=== PATIENT | female | born 1965 | race Caucasian/White ===

== ENCOUNTER 2021-09-30 13:55 | Observation (INO) | payer OTHER, MEDICAID, SELFPAY ==
[2021-09-30] VITALS (36 sets, daily range): BP systolic 128–173; BP diastolic 60–88; PULSE 67–83; RESP 18; TEMP 36.7–37.1; O2SAT 92–97; BMI 41.5
[2021-09-30] MEDS: NICARDIPINE 25 MG in SODIUM CHLORIDE 0.9% 240 ML 50 ML IV (14:55)
[2021-09-30] MEDS: ACETAMINOPHEN 325 MG TABLET 650 MG PO (15:06)
--- NOTE | 2021-09-30 17:04 | DI.ECHO.S_ITS ---
[facility]---------+ [facility] +---------+ : : [address] : : : : [id number] : : : : Phone: [phone] Echocardiogram Report + + :Name: MARIE MESSINA Study Date: 10/01/2021 Height: 62 in : :[facility] ReadingLocation: Weight: 227 lb : : Gender: Female BSA: 2.0 m2 : :: 1965 Age: 56 yrs BP: 131/72 mmHg: :Reason For Study: MALIGNANT HYPERTENSION : :Ordering Physician: CHARAN, : :GOGO Performed By: Mishel Gates : :Referring: GOGO FARRAR : + + Interpretation Summary There is mild-moderate concentric left ventricular hypertrophy. The ejection fraction is estimated to be 60-65%. Diastolic parameters suggest probable normal left ventricular diastolic function and normal filling pressures. The right ventricle is normal in size and function. No significant valvular abnormalities. Unable to estimate PASP. Compared to the prior study dated 10/09/2014, LV wall thickness has increased but otherwise no change. Procedure: A two-dimensional transthoracic echocardiogram with color flow and Doppler was performed. The study quality was technically adequate. Comparison is made with the echocardiogram of 10/09/2014. The patient was in sinus rhythm with heart rates between 62-86 bpm during the exam. Left Ventricle: The left ventricle is normal in size. There is mild-moderate concentric left ventricular hypertrophy. The ejection fraction is estimated to be 60-65%. Diastolic parameters suggest probable normal left ventricular diastolic function and normal filling pressures. Right Ventricle: The right ventricle is normal in size and function. Atria: The left atrial size is normal. Right atrial size is normal. There is no Doppler evidence for an interatrial shunt. Mitral Valve: The mitral valve is normal in structure and function. There is trace mitral regurgitation. Aortic Valve: The aortic valve is trileaflet. The aortic valve is slightly calcified. There is no aortic valve stenosis. No aortic regurgitation is present. Tricuspid Valve: The tricuspid valve is normal in structure and function. There is trace tricuspid regurgitation. Pulmonary artery pressures cannot be estimated because of the lack of a measurable TR jet velocity. Pulmonic Valve: The pulmonic valve is not well visualized. There is trace pulmonic regurgitation. Great Vessels: The aortic root is normal size. The dimensions of the ascending aorta are normal. The IVC is of normal diameter and collapses greater than 50% with a sniff. This suggests a low right atrial pressure of 3 mm Hg. Pericardium/ Pleura There is no pericardial effusion. There is no pleural effusion. MMode/2D Measurements & Calculations LVIDd: 4.3 cm LVOT diam: 1.9 cm LVIDs: 3.1 cm Ao root diam: 2.8 cm FS: 27.0 % asc Aorta Diam: 3.1 cm IVSd: 1.2 cm Ao Arch Diam (Prox Trans): 2.8 cm LVPWd: 1.0 cm LV chávez. diameter/BSA (cm/m^2): 2.1 LV sys. diameter/BSA (cm/m^2): 1.5 LA A2 area: 16.3 cm2 RA long axis: 4.3 cm LA A4 area: 15.8 cm2 RA area: 13.3 cm2 LA length (vol): 4.8 cm RA vol: 35.3 ml LA vol: 46.1 ml RA : 17.5 ml/m2 LA vol index: 22.9 ml/m2 IVC diam: 1.7 cm RVD1 (basal): 3.4 cm RVD2 (mid): 2.8 cm TAPSE: 2.6 cm Doppler Measurements & Calculations Ao V2 max: 168.2 cm/sec LVOT Max Pravin: 101.7 cm/sec Ao V2 mean: 121.4 cm/sec LV V1 max P.1 mmHg Ao max P.3 mmHg LV V1 VTI: 24.2 cm Ao mean P.4 mmHg JOSÉ MIGUEL(I,D): 1.8 cm2 Ao V2 VTI: 38.4 cm JOSÉ MIGUEL(V,D): 1.7 cm2 sev ratio: 0.63 JOSÉ MIGUEL indexed to BSA (cm^2/m^2): 0.87 MV E max pravin: 103.0 cm/sec PA V2 max: 97.7 cm/sec MV A max pravin: 72.1 cm/sec PA V2 mean: 69.1 cm/sec MV E/A: 1.4 PA mean P.1 mmHg Med Peak E' Pravin: 7.9 cm/sec PA pr(Accel): 39.6 mmHg E/E' med: 13.1 Lat Peak E' Pravin: 9.8 cm/sec E/E' lat: 10.5 E/e' average: 11.8 MV dec time: 0.29 sec [facility] 67.4 ml Reading Physician:01:03 PM
--- NOTE | 2021-09-30 17:05 | P.HP_ITS ---
History of Present Illness History of Present Illness Date Patient Seen: 09/30/21 Time Patient Seen: 17:12 Chief complaint: hypertensive crisis Narrative: Patient is a 56-year-old female with a history of hypertension, anxiety, depression, type 2 diabetes, hyperlipidemia, obstructive sleep apnea, migraine headache who went to physical therapy today for chronic left shoulder problem. When she was at the facility the patient was found to be markedly hypertensive with blood pressure of 230 systolic over 110. She was sent to the [facility] emergency room for evaluation. She also complained of headache. Difficulty sleeping last night. The pain was described as 8/10 all over. She had some associated dizziness nausea but no vomiting. She denied any vision changes. She has had no chest pain shortness of breath or palpitations. Patient had a head CT at [facility] which by report is negative. Her EKG showed sinus bradycardia, a chest x-ray was obtained which was negative. Laboratory study revealed sodium 139 potassium 4.0 chloride 105 CO2 of 29, glucose 97, BUN of 13, creatinine 0.87, total bili 1.2, calcium 9.2, alk-phos 84, ALT of 29, AST of 17, her white count was 8.2, hemoglobin 14.3, hematocrit 42.3, platelet count 221. The patient received IV hydralazine without significant improvement. She was transferred to [facility] for inpatient treatment of malignant hypertension. Patient was placed on a Cardene drip at [facility]. Upon arrival here her blood pressure had significantly improved and is now 133/64. Patient History Medical History (Updated 09/30/21 @ 17:17 by Machelle Merritt MD) Anxiety Depression History of hyperparathyroidism Hyperlipidemia Hypertension Hypothyroidism Migraine headache Obstructive sleep apnea Type 2 diabetes mellitus Surgical History (Updated 09/30/21 @ 17:19 by Machelle Merritt MD) H/O tubal ligation History of ankle surgery History of cholecystectomy History of hip surgery History of repair of hiatal hernia Hx of tonsillectomy Family & Social History Family History (Updated 09/30/21 @ 17:25 by Machelle Merritt MD) Mother Hypertension Myocardial infarction Social History: household members spouse Prior Living Arrangements House Safety & Behavioral: Feels Safe in Current Yes Environment Been Physically Hurt or No Threatened By a Person Suicidal Ideation Description None Suicide Plan Description No Plan Tobacco & Substance use: Smoking Status Former smoker alcohol intake current alcohol intake frequency 0-2 drinks per day Substance Use Type marijuana Meds Home Medications and Allergies Home Medications Medication Instructions Recorded Confirmed Type alprazolam 0.5 mg tablet 0.5 mg PO BID PRN 09/30/21 09/30/21 History duloxetine 60 mg capsule,delayed 1 mg PO DAILY 09/30/21 09/30/21 History release insulin glargine 100 unit/mL 30 unit SUBCUT BEDTIME 09/30/21 09/30/21 History subcutaneous solution (Lantus U-100 Insulin) irbesartan 150 mg tablet 150 mg PO BEDTIME 09/30/21 09/30/21 History levothyroxine 175 mcg tablet 175 mcg PO QAM 09/30/21 09/30/21 History liraglutide 0.6 mg/0.1 mL (18 mg/3 1.8 mg SUBCUT DAILY 09/30/21 09/30/21 History mL) subcutaneous pen injector (Victoza 3-Eddie) metoprolol succinate 50 mg 50 mg PO DAILY 09/30/21 09/30/21 History tablet,extended release 24 hr rosuvastatin 40 mg tablet 40 mg PO DAILY 09/30/21 09/30/21 History Review of Systems Review of Systems Narrative: 10 point review of system negative except as above Exam Vital Signs (past 8 hours): - 09/30/21 14:51 Temperature 98.8 F Pulse Rate 70 Respiratory Rate 18 Blood Pressure 162/79 H Pulse Oximetry 94 Narrative Exam Narrative: Pleasant female resting comfortably in no obvious distress [facility] Other: HEENT, normocephalic atraumatic, extraocular muscles are intact, oropharynx is clear Neck Other: Neck is supple without adenopathy or thyromegaly Resp Other: Lungs clear to auscultation Cardio Other: Cardiac exam: Regular rate and rhythm normal S1-S2 with a 2/6 systolic ejection murmur GI Other: Abdomen: Soft nontender nondistended Skin Other: Face Neuro Other: Neuro exam is nonfocal Extrem Other: No edema Objective Labs Labs: As above Assessment & Plan Assessment & Plan narrative: 56-year-old female with a history of hypertension, type 2 diabetes, hyperlipidemia, obstructive sleep apnea, hypothyroidism presents to the hospital with malignant hypertension * By report patient is markedly hypertensive with blood pressures to 30s over 110 * Blood pressure improved with Cardene drip * Will taper the Cardene drip off, resume metoprolol and hyper started * Will obtain a cardiac echo to evaluate LV function * Will defer renal duplex as we are unable to obtain that here to look up for renal artery stenosis, consider further outpatient workup for secondary causes of hypertension Type 2 diabetes * Will continue Lantus and Victoza * Will check Chemsticks at a.c. and HS * Will check glycohemoglobin * As sliding scale Hypothyroidism * Continue L-thyroxine Hyperlipidemia * Continue statin Depression and anxiety * Will continue alprazolam and duloxetine * Patient reports her is her surrogate decision maker, she is a full code will note that her record accordingly. Utilized all available methods to review update and confirm the patient's current medication Patient will be admitted admitted under observation, spatial be discharged home tomorrow assuming blood pressure control has improved Time Spent With Patient Critical Care time: I spent a total of [] minutes of critical care time on this patient's care today; this time is exclusive of procedural time.
[2021-09-30] MEDS: METOPROLOL ER 50 MG TABLET PO (17:14)
--- NOTE | 2021-09-30 18:18 | PM.CN.EICU ---
History of Present Illness Consult details Chief complaint: hypertensive crisis :: This patient was seen in the Intensive Care Unit via real time interactive two-way audiovisual telecommunication. HPI: THis is A 56-year-old Woman with PMH of T2DM, HL, GISELLE, migraines, anxiety, depression, and HTN who was found to have SBP of 230s when she presented for physical therapy for her chronic L shoulder problem. Pt. sent to [facility] ER. Per report head CT was negative and EKG showed sinus fay. CHEM7, LFTs, and CBC were unremarkable. She was given IV hydralazine without significant improvement and therefore she was started on Nicardipine drip and transferred to [facility]. On arrival to [facility] BP was 160-170s/70-80a but now it has improved to 130s-60s on Nicardipine drip 1.25 mg/hr and pt. just got Metoprolol 50mg ER. . ROS: + headaches with some associated dizziness and nausea but no vomitting at outside hospital ER. No visual changes. According to nurse pt. reports improvement in headache. [facility] Medical History (Updated 09/30/21 @ 17:17 by Machelle Merritt MD) Anxiety Depression History of hyperparathyroidism Hyperlipidemia Hypertension Hypothyroidism Migraine headache Obstructive sleep apnea Type 2 diabetes mellitus Surgical History (Updated 09/30/21 @ 17:19 by Machelle Merritt MD) H/O tubal ligation History of ankle surgery History of cholecystectomy History of hip surgery History of repair of hiatal hernia Hx of tonsillectomy Family History (Updated 09/30/21 @ 17:25 by Machelle Merritt MD) Mother Hypertension Myocardial infarction Social History household members: spouse Smoking Status: Former smoker alcohol intake: current Current Medications Current Medications Medications: Home Medications alprazolam 0.5 mg tablet 0.5 mg PO BID PRN 09/30/21 [History Confirmed 09/30/21] duloxetine 60 mg capsule,delayed release 1 mg PO DAILY 09/30/21 [History Confirmed 09/30/21] insulin glargine 100 unit/mL subcutaneous solution (Lantus U-100 Insulin) 30 unit SUBCUT BEDTIME 09/30/21 [History Confirmed 09/30/21] irbesartan 150 mg tablet 150 mg PO BEDTIME 09/30/21 [History Confirmed 09/30/21] levothyroxine 175 mcg tablet 175 mcg PO QAM 09/30/21 [History Confirmed 09/30/21] liraglutide 0.6 mg/0.1 mL (18 mg/3 mL) subcutaneous pen injector (Victoza 3-Eddie) 1.8 mg SUBCUT DAILY 09/30/21 [History Confirmed 09/30/21] metoprolol succinate 50 mg tablet,extended release 24 hr 50 mg PO DAILY 09/30/21 [History Confirmed 09/30/21] rosuvastatin 40 mg tablet 40 mg PO DAILY 09/30/21 [History Confirmed 09/30/21] Visit Medications (administered) Generic Name Dose Route Start Last Admin Trade Name Freq PRN Reason Stop Dose Admin Acetaminophen 650 mg 09/30/21 14:59 09/30/21 15:06 Acetaminophen 325 Mg Tablet PO 650 mg Q6HR PRN Administration Fever/Mild Pain (1-3) Nicardipine HCl 25 mg/ Sodium 250 mls @ 50 mls/hr 09/30/21 15:45 09/30/21 17:23 Chloride IV 2.5 mg/hr TITRATE ALLYSSA 25 mls/hr Titration Protocol 5 MG/HR Exam Vital Signs (past 8 hours): - 09/30/21 14:45 09/30/21 14:46 09/30/21 14:51 Temperature 98.8 F Pulse Rate 70 71 70 Respiratory Rate 18 Blood Pressure 162/79 H 162/79 H Pulse Oximetry 94 93 94 09/30/21 15:00 09/30/21 15:01 09/30/21 15:15 Temperature Pulse Rate 76 75 71 Respiratory Rate Blood Pressure 173/88 H 166/77 H Pulse Oximetry 94 96 94 09/30/21 15:28 09/30/21 15:58 09/30/21 16:24 Temperature Pulse Rate 71 Respiratory Rate Blood Pressure 138/67 128/61 Pulse Oximetry 93 09/30/21 16:30 09/30/21 16:37 09/30/21 16:45 Temperature Pulse Rate 71 Respiratory Rate Blood Pressure 135/64 133/60 Pulse Oximetry 96 09/30/21 16:50 09/30/21 17:00 09/30/21 17:12 Temperature 98.1 F Pulse Rate 70 71 70 Respiratory Rate 18 Blood Pressure 131/62 135/64 Pulse Oximetry 94 92 96 09/30/21 17:14 09/30/21 17:15 09/30/21 17:16 Temperature Pulse Rate 75 69 83 Respiratory Rate Blood Pressure 130/60 130/60 Pulse Oximetry 93 93 09/30/21 17:30 09/30/21 17:45 09/30/21 18:00 Temperature 98.5 F Pulse Rate Respiratory Rate Blood Pressure 135/64 138/68 140/69 Pulse Oximetry Assessment & Plan Assessment & Plan narrative: Assessment 56 yo Hypertensive urgency requiring nicardipine drip DM GISELLE Anxiety Hypothyroidism Plan -wean nicardipine drip to off as long as BP < 160/100 -Metoprolol ER 50 mg QD -hold off on patient's Irbesartan for now as we do not want too drastic reduction of patient's BP, if patient unable to wean off of nicardipine drip despite Metoprolol 50 mg QD, then would titrate back irbesartan -check Troponin and TSH if not done today at outside ER -plan for outpatient u/s to evaluate for renal artery stenosis (as they do not have this capability inpatient at [facility]) -check TSH -monitor patient's BG AC and QHS and resume patient's home insulin regimen -if patient is on CPAP at home for GISELLE then resume CPAP when patient sleeps, otherwise plan to set up for outpatient CPAP -resume patient's xanxas and duloxetine for anxiety CCT spent 40 min Time Spent With Patient Critical Care time: I spent a total of [] minutes of critical care time on this patient's care today; this time is exclusive of procedural time.
--- NOTE | 2021-09-30 19:07 | PC.ADMIT ---
[address] [facility] Admission Note: The patient,Savanna Santizo,56 y/o, was given written information regarding hospital policies, unit procedures and contact persons. Patient's smoking status: Former smoker. Vital Signs - 8 hr 09/30/21 14:45 09/30/21 14:46 09/30/21 14:51 Temperature 98.8 F Pulse Rate 70 71 70 Respiratory Rate 18 Blood Pressure 162/79 H 162/79 H Pulse Oximetry 94 93 94 09/30/21 15:00 09/30/21 15:01 09/30/21 15:15 Temperature Pulse Rate 76 75 71 Respiratory Rate Blood Pressure 173/88 H 166/77 H Pulse Oximetry 94 96 94 09/30/21 15:28 09/30/21 15:58 09/30/21 16:24 Temperature Pulse Rate 71 Respiratory Rate Blood Pressure 138/67 128/61 Pulse Oximetry 93 09/30/21 16:30 09/30/21 16:37 09/30/21 16:45 Temperature Pulse Rate 71 Respiratory Rate Blood Pressure 135/64 133/60 Pulse Oximetry 96 09/30/21 16:50 09/30/21 17:00 09/30/21 17:12 Temperature 98.1 F Pulse Rate 70 71 70 Respiratory Rate 18 Blood Pressure 131/62 135/64 Pulse Oximetry 94 92 96 09/30/21 17:14 09/30/21 17:15 09/30/21 17:16 Temperature Pulse Rate 75 69 83 Respiratory Rate Blood Pressure 130/60 130/60 Pulse Oximetry 93 93 09/30/21 17:30 09/30/21 17:44 09/30/21 17:45 Temperature Pulse Rate Respiratory Rate Blood Pressure 135/64 147/72 H 138/68 Pulse Oximetry 09/30/21 18:00 Temperature 98.5 F Pulse Rate Respiratory Rate Blood Pressure 140/69 Pulse Oximetry Patient transferred from [facility] to [facility] at approximately 1445. Patient on 5 of nicardipine on arrival with BP and HR WNL. Per Dr. Merritt's order, patient given 50mg PO metoprolol and drip was titrated off. Patient's BP remains <150 systolic, HR in 70s. Echo ordered for tomorrow then likely to D/C barring any complications. Patient is A/ox4, ambulatory, and in good spirits.
[2021-09-30 19:36] LABS: Hemoglobin A1C% w Est Avg Glu 5.4 % (4.0-6.0)
[2021-09-30 19:43] LABS: Creatine Kinase 52 U/L (30-135)
--- NOTE | 2021-09-30 19:49 | P.ICUMDRN_ITS ---
- :: This patient was seen in the Intensive Care Unit via real time interactive two- way audiovisual telecommunication. Note: Completed multidisciplinary round. Currently off cardene infusion with SBP ~130s Advised RN to keep patient off of cardene infusion unless SBP > 180.
[2021-09-30 19:55] LABS: Troponin I < 0.012 ng/mL (0.01-0.034)
[2021-09-30] MEDS: INSULIN GLARGINE 100 UNIT/ML 3ML PEN 30 UNIT SUBCUT (20:41)
[2021-09-30] MEDS: ATORVASTATIN 20 MG TABLET 40 MG PO (20:41)
[2021-09-30] MEDS: ALPRAZolam 0.5 MG TABLET PO (20:49)
[2021-10-01] VITALS (22 sets, daily range): BP systolic 131–176; BP diastolic 63–98; PULSE 61–73; RESP 16–20; TEMP 36.5–36.9; O2SAT 95
[2021-10-01] MEDS: ACETAMINOPHEN 325 MG TABLET 650 MG PO ×2 (00:09→08:24)
[2021-10-01] MEDS: KETOROLAC 30 MG/ML VIAL 15 MG IV ×2 (01:16→09:54)
[2021-10-01] MEDS: LEVOTHYROXINE 150 MCG TABLET 175 MCG PO (05:31)
[2021-10-01 05:51] LABS: Add Manual Diff / Slide Review NO; Basophils Absolute Auto 100 /uL (0-100); Basophils Percent Auto 0.6 % (0-2); Eosinophils Absolute Auto 200 /uL (0-450); Eosinophils Percent Auto 2.2 % (2-4); Hematocrit 43.7 % (36-46); Lymphocytes Absolute Auto 2900 /uL (1100-4500); Lymphocytes Percent Auto 31.9 % (25-40); Mean Corpuscular HGB Conc 34.3 % (30-36); Mean Corpuscular Volume 87.3 fL (80-100); Monocytes Absolute Auto 500 /uL (0-900); Monocytes Percent Auto 5.8 % (3-14); Neutrophils Absolute Auto 5300 /uL (1500-7000); Neutrophils Percent Auto 59.5 % (50-75); Platelet Count 202 X10^3/uL (150-400); Red Blood Cell Count 5.01 X10^6/uL (4.0-5.2); Red Cell Distribution Width 12.9 % (11.6-14.8)
[2021-10-01 05:58] LABS: BUN Creatinine Ratio 19.3 (6-22); Blood Urea Nitrogen 16 mg/dL (7-17); Calcium 9.7 mg/dL (8.4-10.2); Carbon Dioxide 29 mmol/L (22-32); Chloride 101 mmol/L (98-107); Estimated Glomerular Filt Rate > 60.0 mL/min (>60); Glucose 118 mg/dL (70-100); HEMOLYSIS 69 (0-50); Sodium 137 mmol/L (137-145)
[2021-10-01 05:59] LABS: Potassium 4.2 mmol/L (3.4-5.1)
--- NOTE | 2021-10-01 07:13 | P.TELICUPN_ITS ---
Subjective Subjective :: This patient was seen in the Intensive Care Unit via real time interactive two- way audiovisual telecommunication. 56 yo W with GISELLE, hypothyroidism, anxiety, T2DM, and HTN admitted for hyp ertensive urgency requiring Nicardipine drip initially but it has been weaned off. Overnight BP ranged 140-170s/70-90s but this morning BP is 139/64. HR is 60-70s. Current Medications Current Medications Medications: Home Medications alprazolam 0.5 mg tablet 0.5 mg PO BID PRN 09/30/21 [History Confirmed 09/30/21] duloxetine 60 mg capsule,delayed release 1 mg PO DAILY 09/30/21 [History Confirmed 09/30/21] insulin glargine 100 unit/mL subcutaneous solution (Lantus U-100 Insulin) 30 unit SUBCUT BEDTIME 09/30/21 [History Confirmed 09/30/21] irbesartan 150 mg tablet 150 mg PO BEDTIME 09/30/21 [History Confirmed 09/30/21] levothyroxine 175 mcg tablet 175 mcg PO QAM 09/30/21 [History Confirmed 09/30/21] liraglutide 0.6 mg/0.1 mL (18 mg/3 mL) subcutaneous pen injector (Victoza 3-Eddie) 1.8 mg SUBCUT DAILY 09/30/21 [History Confirmed 09/30/21] metoprolol succinate 50 mg tablet,extended release 24 hr 50 mg PO DAILY 09/30/21 [History Confirmed 09/30/21] rosuvastatin 40 mg tablet 40 mg PO DAILY 09/30/21 [History Confirmed 09/30/21] Visit Medications (administered) Generic Name Dose Route Start Last Admin Trade Name Freq PRN Reason Stop Dose Admin Acetaminophen 650 mg 09/30/21 14:59 10/01/21 00:09 Acetaminophen 325 Mg Tablet PO 650 mg Q6HR PRN Administration Fever/Mild Pain (1-3) Alprazolam 0.5 mg 09/30/21 16:56 09/30/21 20:49 Alprazolam 0.5 Mg Tablet PO 0.5 mg BID PRN Administration Anxiety Atorvastatin Calcium 40 mg 09/30/21 21:00 09/30/21 20:41 Atorvastatin 20 Mg Tablet PO 40 mg BEDTIME ALLYSSA Administration Nicardipine HCl 25 mg/ Sodium 250 mls @ 50 mls/hr 09/30/21 15:45 09/30/21 18:52 Chloride IV 0 mg/hr TITRATE ALLYSSA 0 mls/hr Titration Protocol 5 MG/HR Insulin Glargine 30 unit 09/30/21 21:00 09/30/21 20:41 Insulin Glargine 100 Unit/Ml 3ml Pen SUBCUT 30 unit BEDTIME ALLYSSA Administration Ketorolac Tromethamine 15 mg 09/30/21 18:30 10/01/21 01:16 Ketorolac 30 Mg/Ml Vial IV 10/03/21 16:59 15 mg Q6H PRN Administration pain Levothyroxine Sodium 175 mcg 10/01/21 06:00 10/01/21 05:31 Levothyroxine 150 Mcg Tablet PO 175 mcg DAILY@0600 ALLYSSA Administration Objective Labs Result Diagrams: 10/01/21 05:35 10/01/21 05:35 Labs: Laboratory Results - last 24 hr 09/30/21 09/30/21 09/30/21 15:30 19:14 19:14 WBC RBC Hgb Hct MCV MCH MCHC RDW Plt Count Neut % (Auto) Lymph % (Auto) Gilliam % (Auto) Eos % (Auto) Baso % (Auto) Neut # (Auto) Lymph # (Auto) Gilliam # (Auto) Eos # (Auto) Baso # (Auto) Sodium Potassium Chloride Carbon Dioxide BUN Creatinine Estimated GFR BUN/Creatinine Ratio Glucose Hemoglobin A1c 5.4 Calcium Total Creatine Kinase 52 CK-MB (CK-2) TNP CK-MB (CK-2) Rel Index TNP Troponin I < 0.012 TSH Nasal Screen MRSA (PCR) Negative for mrsa 09/30/21 10/01/21 10/01/21 19:14 05:35 05:35 WBC 9.0 RBC 5.01 Hgb 15.0 Hct 43.7 MCV 87.3 MCH 30.0 MCHC 34.3 RDW 12.9 Plt Count 202 Neut % (Auto) 59.5 Lymph % (Auto) 31.9 Gilliam % (Auto) 5.8 Eos % (Auto) 2.2 Baso % (Auto) 0.6 Neut # (Auto) 5300 Lymph # (Auto) 2900 Gilliam # (Auto) 500 Eos # (Auto) 200 Baso # (Auto) 100 Sodium 137 Potassium 4.2 Chloride 101 Carbon Dioxide 29 BUN 16 Creatinine 0.83 Estimated GFR > 60.0 BUN/Creatinine Ratio 19.3 Glucose 118 H Hemoglobin A1c Calcium 9.7 Total Creatine Kinase CK-MB (CK-2) CK-MB (CK-2) Rel Index Troponin I TSH 0.80 Nasal Screen MRSA (PCR) Exam Vital Signs (past 8 hours): - 10/01/21 00:13 10/01/21 01:00 10/01/21 01:53 Temperature Pulse Rate 71 71 66 Respiratory Rate 20 Blood Pressure 176/79 H 176/83 H 159/77 H Pulse Oximetry 95 10/01/21 03:00 10/01/21 04:00 10/01/21 05:21 Temperature 97.7 F Pulse Rate 62 62 62 Respiratory Rate 16 Blood Pressure 158/63 H 170/71 H 173/87 H Pulse Oximetry 95 10/01/21 06:00 Temperature Pulse Rate 61 Respiratory Rate 16 Blood Pressure 139/64 Pulse Oximetry Oxygen Delivery Method Room Air Oxygen Flow Rate 0 Assessment & Plan Assessment & Plan narrative: 56 yo Hypertensive urgency requiring nicardipine drip DM GISELLE Anxiety Hypothyroidism Plan -resume patient's home Metoprolol ER 50 mg PO QD and Irbesartan 150 mg QD (or hospital equivalent of Losartan 50 mg QD) -Metoprolol ER 50 mg QD -troponin and TSH were normal -plan for outpatient u/s to evaluate for renal artery stenosis (as they do not have this capability inpatient at [facility]) -BG have been within normal limits, continue current regimen Time Spent With Patient Critical Care time: I spent a total of [] minutes of critical care time on this patient's care today; this time is exclusive of procedural time.
[2021-10-01] MEDS: LOSARTAN 50 MG TABLET PO (08:25)
[2021-10-01] MEDS: ENOXAPARIN 40 MG/0.4 ML SYRINGE SUBCUT (08:25)
[2021-10-01] MEDS: DULOXETINE 30 MG CAPSULE PO (08:25)
--- NOTE | 2021-10-01 09:30 | PM.DS.1 ---
History of Present Illness History of Present Illness Date Patient Seen: 10/01/21 Time Patient Seen: 09:30 Chief complaint: hypertensive crisis Narrative: Patient is a 56-year-old female with a history of hypertension, anxiety, depression, type 2 diabetes, hyperlipidemia, obstructive sleep apnea, migraine headache who went to physical therapy today for chronic left shoulder problem. When she was at the facility the patient was found to be markedly hypertensive with blood pressure of 230 systolic over 110. She was sent to the [facility] emergency room for evaluation. She also complained of headache. Difficulty sleeping last night. The pain was described as 8/10 all over. She had some associated dizziness nausea but no vomiting. She denied any vision changes. She has had no chest pain shortness of breath or palpitations. Patient had a head CT at [facility] which by report is negative. Her EKG showed sinus bradycardia, a chest x-ray was obtained which was negative. Laboratory study revealed sodium 139 potassium 4.0 chloride 105 CO2 of 29, glucose 97, BUN of 13, creatinine 0.87, total bili 1.2, calcium 9.2, alk-phos 84, ALT of 29, AST of 17, her white count was 8.2, hemoglobin 14.3, hematocrit 42.3, platelet count 221. The patient received IV hydralazine without significant improvement. She was transferred to [facility] for inpatient treatment of malignant hypertension. Patient was placed on a Cardene drip at [facility]. Upon arrival here her blood pressure had significantly improved and is now 133/64. Discharge Providers Provider Date of admission: 09/30/21 13:55 Discharge Date: 10/01/21 Primary care physician: MICHELLE Landaverde, TRAIN CONTROL TECHNICIAN-C Consults: 09/30/21 16:56 Consult to Tele-hog ribber Routine Comment: Consulting Provider: [employer] Reason for consultation: [employer] services Discharge provider: Machelle Merritt MD Summary Hospital Course Discharge Diagnosis: 1. Hypertensive urgency 2. Headache 3. Hypothyroidism 4. Type 2 diabetes 5. Hyperlipidemia 6. Anxiety Hospital Course: Patient was admitted to the hospital for hypertensive urgency. She presented to [facility] with blood pressures of 230s over 100s. Patient had a associated headache with that. Head CT at the outside facility was negative. The patient was placed on a Cardene drip. The blood pressure improved significantly. She was able to be tapered off her Cardizem drip and resumed her usual outpatient medications to include Irbesartan and metoprolol. Patient complains of a mild headache for out of 10 in intensity. Otherwise she has no specific complaints. Patient is deemed appropriate for discharge and will be discharged home Status at Discharge Cognitive/behavioral status at discharge: oriented Functional status at discharge: independent ambulation Overall status at discharge: patient is progressing back to baseline Exam Vital Signs (past 8 hours): - 10/01/21 01:50 10/01/21 01:53 10/01/21 02:01 Temperature Pulse Rate 66 Respiratory Rate Blood Pressure 159/77 H 159/77 H 165/74 H Pulse Oximetry 10/01/21 03:00 10/01/21 03:01 10/01/21 04:00 Temperature Pulse Rate 62 62 Respiratory Rate Blood Pressure 158/63 H 158/63 H 170/71 H Pulse Oximetry 10/01/21 04:01 10/01/21 05:02 10/01/21 05:18 Temperature Pulse Rate 70 Respiratory Rate Blood Pressure 170/71 H 173/87 H Pulse Oximetry 95 10/01/21 05:21 10/01/21 06:00 10/01/21 06:01 Temperature 97.7 F Pulse Rate 62 61 Respiratory Rate 16 16 Blood Pressure 173/87 H 139/64 139/64 Pulse Oximetry 95 10/01/21 07:00 10/01/21 08:00 10/01/21 09:00 Temperature 98.5 F Pulse Rate 73 Respiratory Rate 18 Blood Pressure 131/72 146/83 H 153/90 H Pulse Oximetry 95 Oxygen Delivery Method Room Air Oxygen Flow Rate 0 Narrative Exam Narrative: Pleasant female lying in bed in no obvious distress Resp Other: Lungs clear to auscultate Cardio Other: Cardiac exam: Regular rate rhythm normal S1-S2 GI Other: Abdomen soft and nontender Extrem Other: Extremity no edema Objective ECG Impression: Echo result pending Labs Result Diagrams: 10/01/21 05:35 10/01/21 05:35 Labs: Laboratory Results - last 24 hr 09/30/21 09/30/21 09/30/21 15:30 19:14 19:14 WBC RBC Hgb Hct MCV MCH MCHC RDW Plt Count Neut % (Auto) Lymph % (Auto) Cass % (Auto) Eos % (Auto) Baso % (Auto) Neut # (Auto) Lymph # (Auto) Cass # (Auto) Eos # (Auto) Baso # (Auto) Sodium Potassium Chloride Carbon Dioxide BUN Creatinine Estimated GFR BUN/Creatinine Ratio Glucose Hemoglobin A1c 5.4 Calcium Total Creatine Kinase 52 CK-MB (CK-2) TNP CK-MB (CK-2) Rel Index TNP Troponin I < 0.012 TSH Nasal Screen MRSA (PCR) Negative for mrsa 09/30/21 10/01/21 10/01/21 19:14 05:35 05:35 WBC 9.0 RBC 5.01 Hgb 15.0 Hct 43.7 MCV 87.3 MCH 30.0 MCHC 34.3 RDW 12.9 Plt Count 202 Neut % (Auto) 59.5 Lymph % (Auto) 31.9 Cass % (Auto) 5.8 Eos % (Auto) 2.2 Baso % (Auto) 0.6 Neut # (Auto) 5300 Lymph # (Auto) 2900 Cass # (Auto) 500 Eos # (Auto) 200 Baso # (Auto) 100 Sodium 137 Potassium 4.2 Chloride 101 Carbon Dioxide 29 BUN 16 Creatinine 0.83 Estimated GFR > 60.0 BUN/Creatinine Ratio 19.3 Glucose 118 H Hemoglobin A1c Calcium 9.7 Total Creatine Kinase CK-MB (CK-2) CK-MB (CK-2) Rel Index Troponin I TSH 0.80 Nasal Screen MRSA (PCR) [facility] Medical History (Updated 09/30/21 @ 17:17 by Machelle Merritt MD) Anxiety Depression History of hyperparathyroidism Hyperlipidemia Hypertension Hypothyroidism Migraine headache Obstructive sleep apnea Type 2 diabetes mellitus Surgical History (Updated 09/30/21 @ 17:19 by Machelle Merritt MD) H/O tubal ligation History of ankle surgery History of cholecystectomy History of hip surgery History of repair of hiatal hernia Hx of tonsillectomy Family History (Updated 09/30/21 @ 17:25 by Machelle Merritt MD) Mother Hypertension Myocardial infarction Social History household members: spouse Smoking Status: Former smoker alcohol intake: current Discharge Assessment & Plan Assessment and Plan Assessment: Hypertensive urgency 2. Headache 3. Hypothyroidism 4. Type 2 diabetes 5. Hyperlipidemia 6. Anxiety Plan of Treatment: Discharge home Continue current medication Obtain blood pressure cuff and check blood pressure daily Follow-up with primary care physician next week Discharge Plan Discharge Plan Patient Disposition: Home Discharge orders & Medications Prescriptions: Continued levothyroxine 175 mcg tablet 175 mcg PO QAM 0RF Label Comments: Take 1 tablet (175 mcg total) by mouth daily Lantus U-100 Insulin 100 unit/mL solution 30 unit SUBCUT BEDTIME 0RF Label Comments: Inject 30 Units into the skin daily metoprolol succinate 50 mg tablet extended release 24 hr 50 mg PO DAILY 0RF Label Comments: Take 1 tablet (50 mg total) by mouth daily alprazolam 0.5 mg tablet 0.5 mg PO BID PRN (Reason: Anxiety) 0RF Label Comments: Take 1/2 tablet (0.25 mg total) by mouth 2 (two) times daily as needed for Anxiety irbesartan 150 mg tablet 150 mg PO BEDTIME 0RF Label Comments: Take 1 tablet (150 mg total) by mouth nightly rosuvastatin 40 mg tablet 40 mg PO DAILY 0RF Label Comments: Take 1 tablet (40 mg total) by mouth daily duloxetine 60 mg capsule,delayed release(DR/EC) 1 mg PO DAILY 0RF Label Comments: Take 1 capsule (60 mg total) by mouth daily Victoza 3-Eddie 0.6 mg/0.1 mL (18 mg/3 mL) pen injector 1.8 mg SUBCUT DAILY 0RF Label Comments: Inject 1.8 mg into the skin daily Follow up/Referrals: Christel Grewal ARNP, TRAIN CONTROL TECHNICIAN-C [Primary Care Provider] - Discharge Health Status Multidrug resistant organism: No MDRO Diet/Activity/Treatments Diet: Carb-consistent/Diabetic, Low-sodium and Low-cholesterol Discharge Data Primary Care Provider: Christel Grewal
[2021-10-01] MEDS: METOPROLOL ER 50 MG TABLET PO (09:53)
--- NOTE | 2021-10-01 11:09 | CM.DANOTE ---
Addendum entered by Leonela Felipe R.N. 10/01/21 11:19: It is noted in collection notes that patient is active with [place]/Medicaid. Original Note: DCP: Case received, EMR reviewed and met with patient. Introduced self and role. Was able to obtain information regarding patient's baseline activity status at home prior to admission. DCP assessment completed with information currently available. Patient is a 56 year old female who admitted yesterday afternoon to the care of the hospitalist team. PCP: Dr. Grewal. Payer: confirmed: None, will check admission counselor notes. Patient came to the hospital via private vehicle secondary to having an increase in her blood pressure. According to notes, patient had been at her physical therapy appointment for her shoulder, and her blood pressure obtained there was 230/110. Patient had originally gone to [facility] for evaluation, but was sent here due to her needing treatment on Cardene drip, which she could not get at prior hospital. Patient was diagnosed with malignant hypertension. According to notes, her blood pressure improved to 133/64. Patient has history of anxiety, and depression. Met with patient in her room. She is alert and oriented. She resides in [facility] with spouse, David. She is independent at her baseline. She has been going to outpatient P.T. for chronic shoulder pain. P: Patient is to be discharged home today. Noted self pay on her face sheet. Will check further to see if there are collection notes from admission counselors, since patient was sent over by another hospital. Leonela Fleipe RN/Shower Attendant Discharge Planning/Care Management CM Discharge Assessment Start: 10/01/21 11:06 Freq: Status: Active Protocol: Document 10/01/21 11:06 (Rec: 10/01/21 11:09 [email or web address]) Discharge Planning Assessment Assigned Plant Attendant Leonela Felipe RN/Shower Attendant Advance Directives? No: unknown History Provided By Patient,Medical Record Prior Living Arrangements House Household Members spouse Type of transporation used prior to Drives own vehicle admit Independent with ADL's Yes Is patient alert and oriented? Yes Caregiver for Another No Barriers to Discharge No Discharge Plan Home Transportation Arrangement Spouse Referrals Initiated None needed Whiteboard Updated in Patient Room with Yes name and ext. # of Plant Attendant Review Status In Process Next Review Type Continued Stay Review
--- NOTE | 2021-10-01 11:53 | PC.NURSE ---
Provided d/c packet, educational materials. Reviewed htn, checking blood pressure, dash diet education. Reviewed stroke risk/education. Reviewed medication list, next dose due, monitoring parameters. Pt would like to schedule own f/u appt and is agreeable to do so. Pt verbalizes understanding of dc teaching. Pt states she has no questions. Pt dressed herself and gathered belongings. Pt declined w/c transport to POV. Spouse arrived. Pt was escorted to PO by FURNACE SETTER in no distress with all belongings.
== END 2021-10-01 11:50 | disposition home or self-care (01) ==
PROVIDERS: Internal Medicine; Admitting Provider Internal Medicine; PCP Nurse Practitioner Family; Referring Provider Internal Medicine; Visit Provider Internal Medicine
DX: I16.0 Hypertensive urgency (principal); I10 Essential (primary) hypertension; F41.9 Anxiety disorder, unspecified; E11.9 Type 2 diabetes mellitus without complications; E78.5 Hyperlipidemia, unspecified; G47.33 Obstructive sleep apnea (adult) (pediatric); G43.909 Migraine, unspecified, not intractable, without status migrainosus; Z79.4 Long term (current) use of insulin; Z79.84 Long term (current) use of oral hypoglycemic drugs
CPT/HCPCS: 36415; 80048; 82550; 82962; 83036; 84443; 84484; 85025; 87797; 93306; 96365; 96366; 96372; 96375; G0378; G0379; J1650; J1885